=== PATIENT | female | born 1985 | race Caucasian/White ===

== ENCOUNTER 2017-08-02 16:34 | Emergency (ER) | payer MEDICAID ==
[2017-08-02 16:46] VITALS: RESP 20; O2SAT 93
--- NOTE | 2017-08-02 18:45 | EDPHY ---
H & P Stated Complaint: 3 weeks cough/fever Time Seen by Provider: 08/02/17 18:45 HPI/ROS: HPI: This is a 32-year-old female who presents with Chief Complaint: cough/fever Location: Chest Quality: Cough Duration: 2 days Signs and Symptoms:+ fever, + nonproductive cough, + body aches, no chest pain, no weakness, no shortness of breath, no wheezing, no headache, no neck stiffness , no abdominal pain, no sore throat Timing: Sudden, constant Severity: Moderate Context: Patient reports she believe she had respiratory infection approximately 3 weeks ago that resolved on its own and presents today with 2 day history, of fevers body aches, productive cough, and fatigue. Patient reports that her appetite has been poor. She did not receive influenza vaccine here. No history of lung disease. She has tried no [id number] medications. She is currently menstruating. Modifying Factors: None Comment: ROS: see HPI Constitutional: No fever, no chills, no weight loss Eyes: No blurred vision Respiratory: No shortness of breath, + cough Cardiovascular: No chest pain Gastrointestinal: No nausea, no vomiting, no diarrhea Genitourinary: No dysuria Extremities: No myalgias Neurologic: No weakness, no numbness Skin: No rashes Hematologic: No bruising, no bleeding MEDICAL/SURGICAL/SOCIAL HISTORY: Medical history: Yosvany's and polycystic ovarian syndrome Surgical history: Denies Social history: Employed. . CONSTITUTIONAL: Ill but nontoxic appearance adult white female, pleasant cooperative, awake and alert, no obvious distress HEENT: Atraumatic and normocephalic, PERRL, EOMI. Tympanic membranes clear. Oropharynx clear, no exudate and moist pink mucosa. Airway patent. No lymphadenopathy. No meningismus. Cardiovascular: Normal S1/S2, tachycardia, regular rhythm, without murmur rub or gallop. PULMONARY/CHEST: Symmetrical and nontender. Clear to auscultation bilaterally. Good air movement. No accessory muscle usage. ABDOMEN: Soft, nondistended, nontender, no rebound, no guarding, no peritoneal signs, no masses or organomegaly. No CVAT. EXTREMITIES: 2/2 pulses, strength 5/5, no deformities, no clubbing, no cyanosis or edema. NEUROLOGICAL: no focal neuro deficits. GCS 15. SKIN: Warm and dry, no erythema. no rash. Good capillary refill. Source: Patient Exam Limitations: No limitations - Personal History LMP (Females 10-55): Now Current Tetanus/Diphtheria Vaccine: Yes - Medical/Surgical History Hx Asthma: No Hx Chronic Respiratory Disease: No Hx Diabetes: No Hx Cardiac Disease: No Hx Renal Disease: No Hx Cirrhosis: No Hx Alcoholism: No Hx HIV/AIDS: No Hx Splenectomy or Spleen Trauma: No Other PMH: hashimotos/pocs - Social History Smoking Status: Never smoked Constitutional: Initial Vital Signs Temperature (C) 37.6 C 08/02/17 16:43 Heart Rate 112 H 08/02/17 16:43 Respiratory Rate 20 08/02/17 16:43 Blood Pressure 106/77 08/02/17 16:43 O2 Sat (%) 93 08/02/17 16:43 O2 Delivery Mode Room Air Allergies/Adverse Reactions: lorazepam [From Ativan] Allergy (Verified 08/02/17 16:43) Home Medications: Medication Instructions Recorded Albuterol [Ventolin Hfa Inhaler] 1 - 2 puffs IH Q4 PRN #1 mdi 08/02/17 Benzonatate [Tessalon Pearles (RX)] 100 mg PO Q4 PRN #12 cap 08/02/17 Oseltamivir Phosphate [Tamiflu 75 75 mg PO BID #10 cap 08/02/17 mg (*)] Synthroid 08/02/17 Medical Decision Making ED Course/Re-evaluation: Influenza B positive. Tamiflu candidate. Pain has politely declined chest x-ray imaging to evaluate for pneumonia or labs and IV fluids. She requests for medications to be given to her and she wants to be discharged home. appropriate to treat outpatient This patient was seen under the supervision of my secondary supervising physician. I evaluated care for this patient independently. Discussed this patient with Dr. Chua who did not see the patient. Patient's presentation, labs/imaging, treatment and plan of care were discussed with secondary supervising physician. Differential Diagnosis: Differential diagnosis includes but is not limited to influenza, upper respiratory infection, sinusitis, and pneumonia, sepsis. - Data Points Laboratory Results: 08/02/17 16:46 Nasal Influenza A PCR NEGATIVE FOR FLU A (NEGATIVE) Nasal Influenza B PCR FLU B DETECTED H (NEGATIVE) Departure - Departure Disposition: Home, Routine, Self-Care Clinical Impression: Influenza B Condition: Good Instructions: Influenza (ED) Additional Instructions: Consume a minimum of 8-10 glasses of water or electrolyte fluid replacement drinks that include Gatorade, Powerade, Pedialyte. Eat a bland diet for the next 48 hours and then slowly advance as tolerated. Take Tylenol 650 mg every 4 hours and/or Ibuprofen 600 mg every 8 hours with food as needed for pain. Referrals: [facility],. [Clinic] - As per Instructions Prescriptions: Albuterol [Ventolin Hfa Inhaler] 1 - 2 puffs IH Q4 PRN #1 mdi PRN Reason: Short Of Breath/Dyspnea Benzonatate [Tessalon Pearles (RX)] 100 mg PO Q4 PRN #12 cap PRN Reason: Cough, Moderate Oseltamivir Phosphate [Tamiflu 75 mg (*)] 75 mg PO BID #10 cap
[2017-08-02 19:31] VITALS: BP 105/82; PULSE 101; TEMP 99.5
== END 2017-08-02 19:30 | disposition home or self-care (01) ==
LOC: MERGE 16:34
DX: J10.1 Influenza due to other identified influenza virus with other respiratory manifestations (principal)

== ENCOUNTER 2017-08-06 17:46 | Emergency (ER) | payer MEDICAID, OTHER ==
[2017-08-06 17:58] VITALS: TEMP 98.4
--- NOTE | 2017-08-06 18:13 | EDPHY ---
H & P Stated Complaint: dx flu thurs/rx tamiflu/not better HPI/ROS: CHIEF COMPLAINT: Cough HISTORY OF PRESENT ILLNESS: The patient is a 32 y/o female complaining of a cough and cold symptoms for the last 3 weeks. She initially had a fever and myalgias. Many of her symptoms have improved, but her cough persists. She was evaluated here on 08/02/17, 4 days ago, and prescribed Tamiflu, albuterol, and Tessalon Perls. She denies sore throat and has been able to swallow without issue. She denies shortness of breath when she is not coughing. She feels generally very fatigued and is worried she has pneumonia and wants a chest x- ray. No nausea, vomiting, abdominal pain, diarrhea. Her tetanus vaccination is up-to-date, but she unsure of pertussis vaccination status. REVIEW OF SYSTEMS: A ten point review of systems was performed and is negative with the exception of the items mentioned in the HPI. Past medical history: Depression, PCOS Past surgical history: Noncontributory Family history: Noncontributory Social history: Nonsmoker. Employed. . From [place]. Reviewed prior medial records included ED visit 08/02/17 for flu. General Appearance: Alert. Vital signs reviewed. Eyes: Pupils equal and round, no conjunctival injection, no discharge. Anicteric. ENT, Mouth: Mucous membranes are moist, no oropharyngeal erythema or edema. Neck: No lymphadenopathy, supple. Respiratory: Lungs are clear to auscultation; no wheezes, rales, or rhonchi. Frequent dry cough. Cardiovascular: Regular rate and rhythm; no murmur, rub, or gallop. Gastrointestinal: Abdomen is soft and nontender, no masses or organomegaly, bowel sounds normal. Skin: Warm and dry, no rashes on exposed skin, normal color. Back: Nontender to palpation over the thoracolumbar spine. No CVAT. Extremities: No lower extremity edema, no calf tenderness or swelling. Neurological: Alert and oriented. Moving all four extremities easily and equally. Psychiatric: Normal affect. - Personal History LMP (Females 10-55): 1-7 Days Ago Current Tetanus/Diphtheria Vaccine: Yes Tetanus Vaccine Date: < 10 YEARS - Medical/Surgical History Hx Asthma: No Hx Chronic Respiratory Disease: No Hx Diabetes: No Hx Cardiac Disease: No Hx Renal Disease: No Hx Cirrhosis: No Hx Alcoholism: No Hx HIV/AIDS: No Hx Splenectomy or Spleen Trauma: No Other PMH: hashimotos/pocs - Social History Smoking Status: Never smoked Constitutional: Initial Vital Signs Temperature (C) 36.9 C 08/06/17 17:56 Heart Rate 84 18 17:56 Respiratory Rate 17 18 17:56 Blood Pressure 103/77 08/06/17 17:56 O2 Sat (%) 95 08/06/17 17:56 O2 Delivery Mode Room Air Allergies/Adverse Reactions: lamotrigine [From Lamictal] Allergy (Severe, Verified 08/06/17 17:56) Akil Kt Syndrome cobamamide [From B12] Allergy (Intermediate, Verified 08/06/17 17:56) Hives cyanocobalamin [From B12] Allergy (Intermediate, Verified 08/06/17 17:56) Hives lorazepam [From Ativan] Allergy (Unknown, Verified 08/06/17 17:56) Anxiety corn Allergy (Verified 08/06/17 17:56) gluten Allergy (Verified 08/06/17 17:56) Milk Containing Products [dairy] Allergy (Verified 08/06/17 17:56) Pork/Porcine Containing Products Allergy (Verified 08/06/17 17:56) soy Allergy (Verified 08/06/17 17:56) Home Medications: Medication Instructions Recorded Levothyroxine [Synthroid 25 mcg 25 mcg PO DAILY 10/13/14 (*)] Digestive Enzymes 2 cap PO TIDMEAL 11/29/14 Magnesium Oxide [Magnesium Oxide 400 mg PO DAILY 11/29/14 400 mg (*)] Vitamin B Complex [B Complex] 1 each PO DAILY 11/29/14 Vitamin D Liquid 2,000 units PO DAILY 11/29/14 Herbals/Supplements -Info Only 1 ea PO DAILY 11/30/14 Albuterol [Ventolin Hfa Inhaler] 1 - 2 puffs IH Q4 PRN #1 mdi 08/02/17 Benzonatate [Tessalon Pearles (RX)] 100 mg PO Q4 PRN #12 cap 08/02/17 Oseltamivir Phosphate [Tamiflu 75 75 mg PO BID #10 cap 08/02/17 mg (*)] Synthroid 08/02/17 HYDROcodone/HOMATROPINE HYCODA 1 tsp PO Q4-6PRN PRN #120 ml 08/06/17 [Hycodan Syrup (*)] Medical Decision Making - Diagnostics Imaging: I viewed and interpreted images myself ED Course/Re-evaluation: This is a 32 y/o female with a 3-week history of cold symptoms and recent positive flu swab who presents with a persistent cough during this time. Lungs are clear to auscultation and she is afebrile here. I do not have a high suspicion for pneumonia, but patient is requesting a chest x-ray to be sure. I believe patient will require better cough suppression to manage symptoms at home. I have prescribed Hycodan cough syrup for this and referred her to a PCP for follow up. Chest x-ray shows nothing acute, no infiltrate. No evidence of pneumonia on chest x-ray. She is afebrile and has normal pulse oximetry. Differential Diagnosis: I considered a differential diagnosis that includes but is not limited to pertussis, influenza, pneumonia, bronchitis, URI. Departure - Departure Disposition: Home, Routine, Self-Care Clinical Impression: Influenza, Cough Condition: Good Instructions: Hydrocodone/Homatropine (By mouth), Influenza (ED), Acute Cough ( ED) Additional Instructions: 1. Increase fluid intake. Rest. 2. Take Tylenol and ibuprofen as needed for pain or fever for the next few days. 3. Use Hycodan cough syrup as prescribed when needed for cough. This medication contains a narcotic and can make you drowsy. Do not use it while driving. 4. Follow up with your primary care provider for unimproved symptoms over the next week. Referrals: Rubén Valverde MD [Medical Doctor] - As per Instructions [facility],. [Clinic] - As per Instructions Prescriptions: HYDROcodone/HOMATROPINE HYCODA [Hycodan Syrup (*)] 1 tsp PO Q4-6PRN PRN #120 ml PRN Reason: Cough, Moderate Report Scribed for: Bianka Lutz Report Scribed by: Monica Mcallister Date of Report: 08/06/17 Time of Report: 19:06 Physician Review and Approval Statement: 08/06/17 20:27 Portions of this note were transcribed by the medical receptionist medical assistant. I, Dr. Bianka Lutz, personally performed the history, physical exam, and medical decision- making; and confirmed the accuracy of the information in the transcribed note.
[2017-08-06 19:51] VITALS: BP 95/57; PULSE 88; RESP 18; O2SAT 97
== END 2017-08-06 20:27 | disposition home or self-care (01) ==
DX: J11.1 Influenza due to unidentified influenza virus with other respiratory manifestations (principal)

== ENCOUNTER 2018-08-29 08:33 | Emergency (ER) | payer OTHER ==
[2018-08-29 08:40] VITALS: BP 113/71
--- NOTE | 2018-08-29 08:55 | EDPHY ---
H & P Stated Complaint: Closed thumb in car door. Time Seen by Provider: 08/29/18 08:49 HPI/ROS: HPI: This is a 53-year-old female who presents with Chief Complaint: Left thumb slammed in car door Location: Left thumb Quality: Injury Duration: 1 hr prior to arrival Signs and Symptoms: No bleeding, no radiation, no numbness, no weakness, no tingling, no incontinence, no decreased range of motion, + swelling, + pain, no fever Timing: Acute Severity: 01/21 Context: Patient is right-hand dominant, presents with accidentally slamming her left thumb at the tip in a [employer] car door when she was getting out at the gas station to go to the bathroom. She reports that she had not slept all night and was sleepy and not pain attention. She reports that she has redness at the tip of her left thumb with pain that is constant and radiates up into her left wrist. Denies weakness, decreased range of motion. Modifying Factors: None Comment: ROS: A comprehensive 10 system review of systems is otherwise negative aside from elements mentioned in the history of present illness. MEDICAL/SURGICAL/SOCIAL HISTORY: Medical history: Generally healthy. Does not take any regular medications. Currently on her menses. Surgical history: Denies Social history: Smoker. CONSTITUTIONAL: Moderate distress adult white female, awake and alert, nontoxic -appearing HEENT: Atraumatic and normocephalic. NECK: supple, no midline tenderness Cardiovascular: Normal S1/S2, regular rate, regular rhythm, without murmur rub or gallop. PULMONARY/CHEST: Symmetrical and nontender. Clear to auscultation bilaterally. Good air movement. No accessory muscle usage. ABDOMEN: Soft, nondistended, nontender. EXTREMITIES: 2/2 pulses, strength 5/5, left thumb tip shows ecchymosis with some redness under that fingernail at the inferior portion but no subungual hematoma appreciated; tenderness to palpation at the DI P joint; DIP/PIP/MCP flexion/extension intact with good light touch sensation. no deformities, no clubbing, no cyanosis or edema. NEUROLOGICAL: no focal neuro deficits. GCS 15. Light touch sensation intact. SKIN: Warm and dry, no erythema. no rash. Good capillary refill. Source: Patient Exam Limitations: No limitations - Personal History LMP (Females 10-55): Now Current Tetanus/Diphtheria Vaccine: Yes Tetanus Vaccine Date: < 10 YEARS - Medical/Surgical History Hx Asthma: No Hx Chronic Respiratory Disease: No Hx Diabetes: No Hx Cardiac Disease: No Hx Renal Disease: No Hx Cirrhosis: No Hx Alcoholism: No Hx HIV/AIDS: No Hx Splenectomy or Spleen Trauma: No Other PMH: hashimotos/pocs - Social History Smoking Status: Never smoked Constitutional: Initial Vital Signs Temperature (C) 36.3 C 08/29/18 08:37 Heart Rate 81 08/29/18 08:37 Respiratory Rate 16 08/29/18 08:37 Blood Pressure 113/71 08/29/18 08:37 O2 Sat (%) 97 08/29/18 08:37 Allergies/Adverse Reactions: lamotrigine [From Lamictal] Allergy (Severe, Verified 08/29/18 08:40) Akil Kt Syndrome cobamamide [From B12] Allergy (Intermediate, Verified 08/29/18 08:40) Hives cyanocobalamin [From B12] Allergy (Intermediate, Verified 08/29/18 08:40) Hives lorazepam [From Ativan] Allergy (Unknown, Verified 08/29/18 08:40) Anxiety corn Allergy (Verified 08/29/18 08:40) gluten Allergy (Verified 08/29/18 08:40) Milk Containing Products [dairy] Allergy (Verified 08/29/18 08:40) Pork/Porcine Containing Products Allergy (Verified 08/29/18 08:40) soy Allergy (Verified 08/29/18 08:40) Home Medications: Medication Instructions Recorded Levothyroxine [Synthroid 25 mcg 25 mcg PO DAILY 10/13/14 (*)] Digestive Enzymes 2 cap PO TIDMEAL 11/29/14 Magnesium Oxide [Magnesium Oxide 400 mg PO DAILY 11/29/14 400 mg (*)] Vitamin B Complex [B Complex] 1 each PO DAILY 11/29/14 Vitamin D Liquid 2,000 units PO DAILY 11/29/14 Herbals/Supplements -Info Only 1 ea PO DAILY 11/30/14 Albuterol [Ventolin Hfa Inhaler] 1 - 2 puffs IH Q4 PRN #1 mdi 08/02/17 Benzonatate [Tessalon Pearles (RX)] 100 mg PO Q4 PRN #12 cap 08/02/17 Oseltamivir Phosphate [Tamiflu 75 75 mg PO BID #10 cap 08/02/17 mg (*)] Synthroid 08/02/17 HYDROcodone/HOMATROPINE HYCODA 1 tsp PO Q4-6PRN PRN #120 ml 08/06/17 [Hycodan Syrup (*)] Medical Decision Making - Diagnostics Imaging Results: Imaging Impressions Finger X-Ray 08/29/18 09:02 Impression: 1. Nondisplaced fracture distal tuft left thumb.. Procedures: Procedure: Splint placement. A left thumb finger cage splint was applied. After application of the splint I returned and re-examined the patient. The splint was adequately immobilizing the joint and distal to the splint the patient's circulation and sensation was intact. ED Course/Re-evaluation: Vital signs reviewed and stable upon arrival. Ice pack applied, ibuprofen 600 mg given and left thumb x-ray ordered Nail contusion noted but no subungual hematoma appreciated to drain 0915: Left thumb x-ray at bedside reviewed and shows tuft fracture with minimal displacement Placed in cage finger splint with orthopedic/hand follow-up At this time no signs of tendon rupture. No signs of neurovascular compromise/tenting of skin/compartment syndrome/ extremities and joints examined above and below area of concern and are neurovascularly intact. This patient was seen under the supervision of my secondary supervising physician. I evaluated care for this patient with attending. Discussed this patient with Dr. Mojica. Differential Diagnosis: Differential diagnosis includes but is not limited to metacarpal fracture, tuft fracture, tendon rupture, sprain, contusion. - Data Points Medications Given: Discontinued Medications Ibuprofen (Motrin) 600 mg PO EDNOW ONE Stop: 08/29/18 09:24 Last Admin: 08/29/18 09:29 Dose: 600 mg Departure - Departure Disposition: Home, Routine, Self-Care Clinical Impression: Closed fracture of tuft of distal phalanx of left thumb Condition: Good Instructions: Finger Fracture (ED), Splint Care (ED) Additional Instructions: Keep the splint dry and in place until seen for follow-up by orthopedic/hand. Take Tylenol 650 mg every 4 hours and/or Ibuprofen 600 mg every 8 hours with food as needed for pain. Apply ice for 30 minutes at a time; 2-3 times per day for the next 1-2 days. Follow up with Orthopedics/Hand in 5-7 days at which time they will evaluate and recommend with you if conservative management versus further imaging is indicated. Return to the ER immediately if you experience new or worsening pain, discoloration, numbness, tingling, or any other symptoms that concern you. Referrals: Surya Strong MD [Medical Doctor] - As per Instructions
[2018-08-29] MEDS ORDERED: IBUPROFEN 600 MG TAB PO ONE (09:23)
== END 2018-08-29 09:39 | disposition home or self-care (01) ==
DX: S62.525A Nondisplaced fracture of distal phalanx of left thumb, initial encounter for closed fracture (principal); Y92.524 Gas station as the place of occurrence of the external cause; Y99.9 Unspecified external cause status; Y93.9 Activity, unspecified
CPT/HCPCS: 73140; 99283; L3925

== ENCOUNTER 2018-12-23 19:13 | Emergency (ER) | payer OTHER, MEDICAID | END 2018-12-23 19:41 | disposition home or self-care (01) ==